=== PATIENT | female | born 1975 | race Asian ===

== ENCOUNTER 2017-01-21 21:30 | Emergency (ER) | payer OTHER ==
[~2017-01-21] VITALS: Ht 167.6 cm; Wt 54.8 kg
[2017-01-21 21:35] VITALS: BP 135/91
== END 2017-01-21 23:39 | disposition home or self-care (01) ==
LOC: ED 23:23
DX: S82.042A Displaced comminuted fracture of left patella, initial encounter for closed fracture (principal); W01.0XXA Fall on same level from slipping, tripping and stumbling without subsequent striking against object, initial encounter; Y93.89 Activity, other specified; Y92.89 Other specified places as the place of occurrence of the external cause; Y99.8 Other external cause status
CPT/HCPCS: 29505